=== PATIENT | male | born 1940 | race Caucasian/White ===

== ENCOUNTER 2016-12-02 05:52 | Emergency (ER) | payer MEDICARE, BC ==
[~2016-12-02] VITALS: Ht 177.8 cm; Wt 82.0 kg
[2016-12-02 05:55] VITALS: BP 205/109; PULSE 62; RESP 16; TEMP 98; O2SAT 96
[2016-12-02 06:45] VITALS: BP 174/76; PULSE 66; RESP 16; O2SAT 99
[2016-12-02 07:09] VITALS: BP 172/75; PULSE 71; RESP 18; TEMP 98.3; O2SAT 96
[2016-12-02] MEDS ORDERED: diphenhydrAMINE HCL 50 MG/ML VIAL IVP ONE (07:30)
[2016-12-02] MEDS ORDERED: METOCLOPRAMIDE HCL 10 MG/2 ML VIAL IVP ONE (07:30)
[2016-12-02] MEDS ORDERED: SODIUM CHLORIDE 0.9% FLUSH 5 ML FLUSH IVF PRN (07:30)
[2016-12-02 08:00] LABS: BASOPHIL % 0.6 % (0.0-2.0); EOSINOPHIL # 0.1 TH/MM3 (0-0.4); EOSINOPHIL % 0.8 % (0.0-4.0); HEMO FLAGS DIFF FINAL; LYMPH % 17.6 % (9.0-44.0); LYMPHOCYTE # 1.2 TH/MM3 (1.0-4.8); MEAN CELL VOLUME 85.2 FL (80.0-100.0); MEAN CORPUSCULAR HEMOGLOBIN 28.4 PG (27.0-34.0); MEAN CORPUSCULAR HGB CONC 33.4 % (32.0-36.0); MONO % 6.7 % (0.0-8.0); NEUT % 74.3 % (16.0-70.0); PLATELET COUNT 197 TH/MM3 (150-450); RED CELL DISTRIBUTION WIDTH 14.4 % (11.6-17.2); WHITE BLOOD COUNT 6.7 TH/MM3 (4.0-11.0)
[2016-12-02 08:07] VITALS: BP 185/85; PULSE 66; RESP 18; O2SAT 98
--- NOTE | 2016-12-02 08:13 | RADRPT ---
EXAM DATE/TIME: 12/02/2016 07:43 [facility] COMPARISON: No previous studies available for comparison. INDICATIONS : Cephalgia for one day. RADIATION DOSE: 56.35 CTDIvol (mGy) MEDICAL HISTORY : Diabetes. SURGICAL HISTORY : None. ENCOUNTER: Initial ACUITY: 1 day PAIN SCALE: 5/10 LOCATION: cranial TECHNIQUE: Multiple contiguous axial images were obtained of the head. Using automated exposure control and adj ustment of the mA and/or kV according to patient size, radiation dose was kept as low as reasonably a chievable to obtain optimal diagnostic quality images. FINDINGS: CEREBRUM: The ventricles are normal for age. No evidence of midline shift, mass lesion, hemorrhage or acute in farction. No extra-axial fluid collections are seen. POSTERIOR FOSSA: The cerebellum and brainstem are intact. The 4th ventricle is midline. The cerebellopontine angle i s unremarkable. EXTRACRANIAL: The visualized portion of the orbits is intact. SKULL: The calvaria is intact. No evidence of skull fracture. CONCLUSION: Moderate periventricular white matter changes otherwise negative.. Tre Coombs MD FACR on December 02, 2016 at 8:10 Board Certified Radiologist. This report was verified electronically.
[2016-12-02 08:18] LABS: BICARBONATE 27.8 MEQ/L (21.0-32.0); POTASSIUM 4.3 MEQ/L (3.5-5.1)
--- NOTE | 2016-12-02 08:37 | PD ---
HPI Chief Complaint: Headache Time Seen by Provider: 07:17 Travel History International Travel<30 days: No Contact w/Intl Traveler<30days: No Traveled to known affect area: No History of Present Illness HPI Patient is a 76-year-old male presents emergency department with complaint of headache. Patient states that he woke up this morning with a midline occipital parietal headache. States that this is severe and "hurts like hell". Patient states that the headache woke him up from sleep. He has tried 1000 mg of Tylenol prior to arrival with little to no help in his symptoms. The headache does have some pulsating characteristics. He is overall not a headachy person and does not get headaches frequently, it has been getting them with some irregularity over the last several months. He was given a prescription for butalbital by his PCP, but patient has not yet taken this. He denies any changes in his vision, nausea vomiting. No neurologic symptoms. Denies any history of subarachnoid hemorrhage, and self or family. PFSH Past Medical History Diabetes: Yes Patient Takes Glucophage: Yes Diminished Hearing: No Past Surgical History Abdominal Surgery: Yes (HERNIA REPAIR) Social History Alcohol Use: No Tobacco Use: No Substance Use: No Allergies-Medications (Allergen,Severity, Reaction): Coded Allergies: Codeine (Verified Adverse Reaction, Intermediate, Headache, 12/02/16) Review of Systems Except as stated in HPI: all other systems reviewed are Neg Physical Exam Narrative GENERAL: Well-appearing elderly male in no acute distress SKIN: Warm and dry. HEAD: Atraumatic. Normocephalic. EYES: Pupils equal and round. 3 mm. Extraocular movements intact. No afferent pupillary defect. No scleral icterus. No injection or drainage. ENT: No nasal bleeding or discharge. Mucous membranes pink and moist. TMs clear bilaterally. NECK: Supple, no bruit CARDIOVASCULAR: Regular rate and rhythm. No murmur appreciated. RESPIRATORY: No accessory muscle use. Clear to auscultation. Breath sounds equal bilaterally. GASTROINTESTINAL: Abdomen soft, non-tender, nondistended. MUSCULOSKELETAL: Moves all extremity's normally NEUROLOGICAL: Awake and alert. Answers questions and follows commands appropriately. No obvious cranial nerve deficits. Motor grossly within normal limits, 5 out of 5 strength without ataxia. Normal speech. PSYCHIATRIC: Appropriate mood and affect; insight and judgment normal. Data Data Last Documented VS Vital Signs Date Time Temp Pulse Resp B/P Pulse Ox O2 Delivery O2 Flow Rate FiO2 12/02/16 08:56 89 156/78 12/02/16 08:07 18 98 Room Air 12/02/16 07:[address] Brain W/O Iv Contrast(Rout) (12/02/16 ) Complete Blood Count With Diff (12/02/16 07:21) Basic Metabolic Panel (Bmp) (12/02/16 07:21) Ecg Monitoring (12/02/16 07:21) Iv Access Insert/Monitor (12/02/16 07:21) Oximetry (12/02/16 07:21) Sodium Chloride 0.9% Flush (Ns Flush) (12/02/16 07:30) Diphenhydramine Inj (Benadryl Inj) (12/02/16 07:30) Metoclopramide Inj (Reglan Inj) (12/02/16 07:30) Ketorolac Inj (Toradol Inj) (12/02/16 08:45) Electrocardiogram (12/02/16 07:15) Labs Laboratory Tests Test 12/02/16 07:39 White Blood Count 6.7 TH/MM3 Red Blood Count 4.70 MIL/MM3 Hemoglobin 13.4 GM/DL Hematocrit 40.0 % Mean Corpuscular Volume 85.2 FL Mean Corpuscular Hemoglobin 28.4 PG Mean Corpuscular Hemoglobin 33.4 % Concent Red Cell Distribution Width 14.4 % Platelet Count 197 TH/MM3 Mean Platelet Volume 8.7 FL Neutrophils (%) (Auto) 74.3 % Lymphocytes (%) (Auto) 17.6 % Monocytes (%) (Auto) 6.7 % Eosinophils (%) (Auto) 0.8 % Basophils (%) (Auto) 0.6 % Neutrophils # (Auto) 5.0 TH/MM3 Lymphocytes # (Auto) 1.2 TH/MM3 Monocytes # (Auto) 0.4 TH/MM3 Eosinophils # (Auto) 0.1 TH/MM3 Basophils # (Auto) 0.0 TH/MM3 CBC Comment DIFF FINAL Differential Comment Sodium Level 139 MEQ/L Potassium Level 4.3 MEQ/L Chloride Level 105 MEQ/L Carbon Dioxide Level 27.8 MEQ/L Anion Gap 6 MEQ/L Blood Urea Nitrogen 16 MG/DL Creatinine 0.92 MG/DL Estimat Glomerular Filtration 80 ML/MIN Rate Random Glucose 137 MG/DL Calcium Level 9.4 MG/DL MDM Medical Decision Making Medical Screen Exam Complete: Yes Emergency Medical Condition: Yes Medical Record Reviewed: Yes Differential Diagnosis 76-year-old male here with complaint of sudden onset severe headache at approximately 3 AM. Differential includes tension headache, cluster headache, migraine headache, subarachnoid hemorrhage. There is no report of trauma. Patient is hypertensive, but not to the degree that I would anticipate this causing his headache. Narrative Course Patient placed on monitor, IV established and blood obtained. A twelve-lead EKG shows sinus rhythm with first-degree AV block. Right bundle branch block. No notable ST abnormalities. Patient was given 50 mg Benadryl, 10 mg Reglan with little change in his symptoms. CT brain was obtained and negative. CBC, BMP unremarkable. As patient's CT of the brain was performed within 6 hours of headache onset, patient does not require lumbar puncture. The is supported by BMJ article BMJ 2011;343:d4277. This study including patient's over the age of 15 with a nontraumatic acute headache or with syncope associated with headache. Patient' s were GCS 15, had a headache with maximum intensity in less than one hour after onset. Patient's were focal neurologic deficits, papilledema, history of FH, aneurysm, [employer] shunt or brain neoplasm were excluded. With this, a head CT within the first 6 hours had 100% sensitivity in 100% specificity for subarachnoid hemorrhage. As patient had little change in his symptoms after the above treatment he was given 30 mg Toradol. Patient felt markedly improved after this treatment will be discharged home. Diagnosis Primary Impression: Headache Qualified Code: R51 - Acute nonintractable headache, unspecified headache type Additional Impression: Hypertension Qualified Code: I10 - Essential hypertension Referrals: Primary Care Physician as needed Additional Instructions: Tylenol (acetaminophen) or Motrin (ibuprofen) at home as needed for headache. Follow-up with primary care provider if symptoms persist and return to the ER for the warning signs discussed. Med/Other Pt SpecificInfo: No Change to Meds Disposition: 01 DISCHARGE HOME Condition: Stable Haylee Friend MD Dec 02, 2016 08:37
[2016-12-02] MEDS ORDERED: KETOROLAC TROMETHAMINE 30 MG/ML (IVP) VIAL IVP ONE (08:45)
[2016-12-02 08:56] VITALS: BP 156/78; PULSE 89
[2016-12-02 11:04] VITALS: BP 162/88; TEMP 98.3
--- NOTE | 2016-12-02 11:36 | EKG ---
Date Performed: 12/02/2016 Time Performed: 07:15:39 PTAGE: 76 years EKG: Sinus rhythm WITH FIRST DEGREE AV BLOCK RIGHT BUNDLE BRANCH BLOCK ABNORMAL ECG NO PREVIOUS TRACING DOCTOR: Hugh Thorne Interpretating Date/Time 12/02/2016 11:34:42
== END 2016-12-02 10:50 | disposition home or self-care (01) ==
LOC: NEPE 05:52
DX: R51 Headache (principal); I10 Essential (primary) hypertension; E11.9 Type 2 diabetes mellitus without complications
CPT/HCPCS: 70450; 80048; 85025; 93005; 96374; 96375; 99284; J1200; J1885; J2765

== ENCOUNTER 2016-12-29 20:41 | Inpatient (IN) | payer MEDICARE, BC ==
[~2016-12-29] VITALS: Ht 180.3 cm; Wt 79.5 kg
[2016-12-29 20:44] VITALS: BP 140/65; PULSE 102; RESP 15; TEMP 100.1; O2SAT 94
[2016-12-29] MEDS ORDERED: PIPERACIL-TAZO 4.5 GM PREMIX 100 ML IV STA (21:35)
[2016-12-29] MEDS ORDERED: VANCOMYCIN INJ 1,000 MG in SODIUM CHLOR 0.9% 250 ML INJ 250 ML IV STA (21:35)
[2016-12-29] MEDS ORDERED: SODIUM CHLOR 0.9% 1000 ML INJ 1,000 ML IV ONE ×2 (21:35)
[2016-12-29] MEDS ORDERED: SODIUM CHLOR 0.9% 1000 ML INJ 700 ML IV ONE (21:35)
[2016-12-29 21:37] VITALS: BP 134/62; PULSE 97; RESP 12; TEMP 97.2; O2SAT 95
--- NOTE | 2016-12-29 21:38 | PD ---
HPI Chief Complaint: General Weakness Time Seen by Provider: 21:31 Travel History International Travel<30 days: No Contact w/Intl Traveler<30days: No Traveled to known affect area: No History of Present Illness HPI 76-year-old diabetic male here with complaint of generalized weakness. Patient states that for the last 24 hours he feels generally weak, fatigued. notes tactile fever at home. Patient denies any complaints of cough, cold, chest congestion, abdominal pain or urinary symptoms. He has chronic runny nose but this is not any worse than his baseline. No chest pain, palpitations. PFSH Past Medical History Diabetes: Yes (METFORMIN) Diminished Hearing: No Past Surgical History Abdominal Surgery: Yes (HERNIA REPAIR) Social History Alcohol Use: No Tobacco Use: No Substance Use: No Allergies-Medications (Allergen,Severity, Reaction): Coded Allergies: Codeine (Verified Adverse Reaction, Intermediate, Headache, 12/29/16) Reported Meds & Prescriptions Reported Meds & Active Scripts Active Reported Valsartan 40 Mg Tab 20 Mg PO BID Ivlmwxtsip-Bjjrigfbbohmi-Augfpyfe 50-325-40 Mg Tab 1 Tab PO Q4H PRN Do not exceed 6 tablets/day. Pravastatin 20 Mg Tab 20 Mg PO DAILY Aricept (Donepezil) 10 Mg Tab 10 Mg PO HS Glimepiride 4 Mg Tab 4 Mg PO BIDAC Cilostazol 100 Mg Tab 100 Mg PO BID Repaglinide 0.5 Mg Tab 0.5 Mg PO TIDAC Toprol XL (Metoprolol Succinate) 50 Mg Tab 50 Mg PO DAILY Metformin (Metformin HCl) 500 Mg Tab 1,000 Mg PO BIDPC With meals Review of Systems Except as stated in HPI: all other systems reviewed are Neg Physical Exam Narrative GENERAL: Pleasant elderly male in no acute distress SKIN: Warm and dry. HEAD: Normocephalic. EYES: Pupils equal and round. No scleral icterus. No injection or drainage. ENT: No nasal bleeding or discharge. Mucous membranes pink and moist. NECK: Supple without nuchal rigidity CARDIOVASCULAR: Tachycardic with heart rate in the 100s, irregularly irregular rhythm. No murmur appreciated. RESPIRATORY: No accessory muscle use. Clear to auscultation. Breath sounds equal bilaterally. GASTROINTESTINAL: Abdomen soft, non-tender, nondistended. MUSCULOSKELETAL: Normal gait NEUROLOGICAL: Awake and alert. Motor grossly within normal limits. Normal speech. PSYCHIATRIC: Appropriate mood and affect; insight and judgment normal. Data Data Last Documented VS Vital Signs Date Time Temp Pulse Resp B/P Pulse Ox O2 Delivery O2 Flow Rate FiO2 12/29/16 21:53 100.0 12/29/16 21:52 100 12 93 Room Air 12/29/16 21:37 134/62 Orders Electrocardiogram (12/29/16 20:56) Complete Blood Count With Diff (12/29/16 20:56) Basic Metabolic Panel (Bmp) (12/29/16 20:56) Ckmb (Isoenzyme) Profile (12/29/16 20:56) Troponin I (12/29/16 20:56) Chest, Single Ap (12/29/16 20:56) Lactic Acid Sepsis Protocol (12/29/16 21:06) Lipase (12/29/16 21:06) Urinalysis - C+S If Indicated (12/29/16 21:06) Blood Culture (12/29/16 21:06) Magnesium (Mg) (12/29/16 21:24) Prothrombin Time / Inr (Pt) (12/29/16 21:24) Act Partial Throm Time (Ptt) (12/29/16 21:24) Bilateral Bp Monitoring (12/29/16 21:24) Ecg Monitoring (12/29/16 21:35) Iv Access Insert/Monitor (12/29/16 21:35) Oximetry (12/29/16 21:35) Acetaminophen (Tylenol) (12/29/16 21:45) Vancomycin Inj (Vancomycin Inj) (12/29/16 21:35) Piperacil-Tazo 4.5 Gm Premix (Zosyn 4.5 (12/29/16 21:35) Sodium Chlor 0.9% 1000 Ml Inj (Ns 1000 M (12/29/16 21:35) Sodium Chlor 0.9% 1000 Ml Inj (Ns 1000 M (12/29/16 21:35) Sodium Chlor 0.9% 1000 Ml Inj (Ns 1000 M (12/29/16 21:35) Hepatic Functional Panel (12/29/16 21:45) CKMB (12/29/16 21:09) CKMB% (12/29/16 21:09) Consult Cardiology (12/29/16 ) Enoxaparin Inj (Lovenox Inj) (12/29/16 23:00) Admit Order (Ed Use Only) (12/29/16 23:20) Labs Laboratory Tests Test 12/29/16 12/29/16 12/29/16 21:09 21:45 21:48 White Blood Count 6.1 TH/MM3 Red Blood Count 3.92 MIL/MM3 Hemoglobin 11.3 GM/DL Hematocrit 33.3 % Mean Corpuscular Volume 85.1 FL Mean Corpuscular Hemoglobin 29.0 PG Mean Corpuscular Hemoglobin 34.0 % Concent Red Cell Distribution Width 14.1 % Platelet Count 161 TH/MM3 Mean Platelet Volume 8.3 FL Neutrophils (%) (Auto) 85.0 % Lymphocytes (%) (Auto) 6.1 % Monocytes (%) (Auto) 8.5 % Eosinophils (%) (Auto) 0.0 % Basophils (%) (Auto) 0.4 % Neutrophils # (Auto) 5.2 TH/MM3 Lymphocytes # (Auto) 0.4 TH/MM3 Monocytes # (Auto) 0.5 TH/MM3 Eosinophils # (Auto) 0.0 TH/MM3 Basophils # (Auto) 0.0 TH/MM3 CBC Comment DIFF FINAL Differential Comment Sodium Level 141 MEQ/L Potassium Level 3.5 MEQ/L Chloride Level 107 MEQ/L Carbon Dioxide Level 26.6 MEQ/L Anion Gap 7 MEQ/L Blood Urea Nitrogen 25 MG/DL Creatinine 1.16 MG/DL Estimat Glomerular Filtration 61 ML/MIN Rate Random Glucose 102 MG/DL Calcium Level 8.9 MG/DL Total Creatine Kinase 110 U/L Creatine Kinase MB LESS THAN 0.5 NG/ML Troponin I 0.08 NG/ML Prothrombin Time 11.1 SEC Prothromb Time International 1.0 RATIO Ratio Activated Partial 28.7 SEC Thromboplast Time Magnesium Level 2.2 MG/DL Total Bilirubin 0.5 MG/DL Direct Bilirubin 0.1 MG/DL Indirect Bilirubin 0.4 MG/DL Aspartate Amino Transf 37 U/L (AST/SGOT) Alanine Aminotransferase 49 U/L (ALT/SGPT) Alkaline Phosphatase 82 U/L Total Protein 8.3 GM/DL Albumin 4.2 GM/DL Lipase 314 U/L Lactic Acid Level 1.0 mmol/L MDM Medical Decision Making Medical Screen Exam Complete: Yes Emergency Medical Condition: Yes Medical Record Reviewed: Yes Differential Diagnosis 76-year-old diabetic male here with generalized weakness 24 hours. Patient notably tachycardic with heart rates in the 100s, low-grade temp 100.1. Differential includes viral syndrome, influenza, pneumonia, you TIA, bacteremia , arrhythmia, electrolyte abnormality, symptomatic anemia. Less likely abdominal source given benign abdominal examination. Narrative Course Patient placed on monitor, IV established and blood obtained. A 12-lead EKG shows atrial fibrillation with RVR, heart rate 109. Right bundle branch block. Patient has ST elevation in aVR, lead 3 but these are not contiguous. He has diffuse ST depression in the lateral leads 1, aVL and V1 through V6. This is more pronounced from his baseline EKG. Again he does not have any active chest pain at this time. Patient was given Tylenol and empirically covered with vancomycin, Zosyn, IV fluids. CBC, CMP, lipase, CK-MB, troponin, lactate, urinalysis, coags, magnesium notable for troponin 0.08. Again patient denies any cardiac history, chest pain, shortness of breath. I spoke with Dr. Young, my suspicion that this is more demand ischemia and less likely non- ST elevation ME. Therefore patient was given dose of Lovenox which she agreed with. Portable chest x-ray obtained that by my read shows no evidence of infiltrate. Urinalysis remains pending. Patient will be admitted for further management. Critical Care Narrative Aggregate critical care time was 35 minutes. Time to perform other separately billable procedures was not included in the critical care time. My time did not include minutes spent treating any other patients simultaneously or on activities that did not directly contribute to the patient's treatment. The services I provided to this patient were to treat and/or prevent clinically significant deterioration that could result in: Cardiopulmonary decompensation, , disability I provided critical care services requiring my management, as noted below: Chart data review, documentation time, medication orders and management, vital sign assessments/reviewing monitor data, ordering and reviewing lab tests, ordering and interpreting/reviewing x-rays and diagnostic studies, care of the patient and discussion of the patient with the admitting physicians. Sepsis Criteria SIRS Criteria (2 or more): Heart rate over 90 Sepsis Criteria (SIRS+source): Infect source susp/known Diagnosis Primary Impression: Sepsis Qualified Code: A41.9 - Sepsis, due to unspecified organism Additional Impressions: Elevated troponin Generalized weakness Admitting Information Admitting Physician Requests: Admit Haylee Friend MD Dec 29, 2016 21:38
[2016-12-29] MEDS ORDERED: ACETAMINOPHEN 325 MG TAB PO ONE (21:45)
--- NOTE | 2016-12-29 21:45 | RADRPT ---
EXAM DATE/TIME: 12/29/2016 21:31 [facility] COMPARISON: No previous studies available for comparison. INDICATIONS : Weakness, cough for 3 days MEDICAL HISTORY : None. SURGICAL HISTORY : None. ENCOUNTER: Initial ACUITY: 3 days PAIN SCORE: 0/10 LOCATION: Bilateral chest FINDINGS: The lungs are clear without infiltrate, nodule, or mass. There is no appreciable pleural effusion fo r technique. Heart and mediastinum are unremarkable. CONCLUSION: No acute cardiopulmonary disease. Veronique Peter MD on December 29, 2016 at 21:43 Board Certified Radiologist. This report was verified electronically.
[2016-12-29 21:53] VITALS: TEMP 100
[2016-12-29] MEDS ORDERED: PRAV20TA2 PO (22:05)
[2016-12-29] MEDS ORDERED: CILO100T PO (22:05)
[2016-12-29] MEDS ORDERED: ARIC10TA PO (22:05)
[2016-12-29] MEDS ORDERED: TOPR50TA PO (22:05)
[2016-12-29] MEDS ORDERED: METF500T PO (22:05)
[2016-12-29] MEDS ORDERED: GLIM4TAB PO (22:05)
[2016-12-29] MEDS ORDERED: BUTATAB6 PO (22:05)
[2016-12-29] MEDS ORDERED: VALS1TAB63 PO (22:05)
[2016-12-29] MEDS ORDERED: REPA1TAB PO (22:05)
[2016-12-29 22:13] LABS: AUTOMATED NEUTROPHIL # 5.2 TH/MM3 (1.8-7.7); BASOPHIL % 0.4 % (0.0-2.0); HEMATOCRIT 33.3 % (39.0-51.0); HEMO FLAGS DIFF FINAL; LYMPH % 6.1 % (9.0-44.0); LYMPHOCYTE # 0.4 TH/MM3 (1.0-4.8); MEAN CELL VOLUME 85.1 FL (80.0-100.0); MONO % 8.5 % (0.0-8.0); PLATELET COUNT 161 TH/MM3 (150-450); RED BLOOD COUNT 3.92 MIL/MM3 (4.50-5.90); RED CELL DISTRIBUTION WIDTH 14.1 % (11.6-17.2); WHITE BLOOD COUNT 6.1 TH/MM3 (4.0-11.0)
[2016-12-29 22:25] LABS: ANION GAP 7 MEQ/L (5-15); BICARBONATE 26.6 MEQ/L (21.0-32.0); BLOOD UREA NITROGEN 25 MG/DL (7-18); CHLORIDE 107 MEQ/L (98-107); GLOMERULAR FILTRATION RATE 61 ML/MIN (>89); POTASSIUM 3.5 MEQ/L (3.5-5.1); SODIUM (NA) 141 MEQ/L (136-145)
[2016-12-29 22:29] LABS: CREATINE KINASE 110 U/L (39-308)
[2016-12-29 22:36] LABS: APTT (PATIENT) 28.7 SEC (24.3-30.1); PROTHROMBIN TIME - PATIENT 11.1 SEC (9.8-11.6)
[2016-12-29 22:39] LABS: INDIRECT BILIRUBIN 0.4 MG/DL (0.0-0.8); MAGNESIUM 2.2 MG/DL (1.5-2.5); TOTAL BILIRUBIN ADULT 0.5 MG/DL (0.2-1.0)
[2016-12-29 22:42] LABS: CKMB LESS THAN 0.5 NG/ML (0.5-3.6)
[2016-12-29] MEDS ORDERED: ENOXAPARIN SODIUM 80 MG/0.8 ML SYRINGE SQ ONE (23:00)
[2016-12-29] MEDS ORDERED: ONDANSETRON HCL 4 MG/2 ML VIAL IVP PRN (23:45)
[2016-12-29] MEDS ORDERED: SODIUM CHLORIDE 0.9% FLUSH 5 ML FLUSH FLUSH PRN (23:45)
[2016-12-29] MEDS ORDERED: NALOXONE HCL 0.4 MG/ML AMP IV PRN (23:45)
[2016-12-30] VITALS (11 sets, daily range): BP systolic 138–192; BP diastolic 68–137; PULSE 87–116; RESP 16–22; TEMP 96.8–100; O2SAT 89–96
[2016-12-30] MEDS ORDERED: PILL SPLITTER OTHER PRN (00:15)
[2016-12-30 00:45] LABS: BLOOD, URINE NEG (NEG); GLUCOSE,URINE NEG (NEG); KETONE, URINE TRACE mg/dL (NEG); MUCUS URINE FEW /lpf (OCC); NITRITE,URINE NEG (NEG); URINE COLOR YELLOW (YELLW/STRAW)
[2016-12-30 00:48] LABS: COMMENT (UR) CATH-CULT NOT IND; CULTURE IF INDICATED CATH CULTURE NOT IND
[2016-12-30] MEDS: SODIUM CHLOR 0.9% 1000 ML INJ 1,000 ML IV SCH ×2 (00:50→15:05)
[2016-12-30] MEDS ORDERED: METOPROLOL SUCCINATE 50 MG EXTENDED RELEASE TAB PO SCH ×3 (04:30→21:00)
[2016-12-30] MEDS: ACETAMINOPHEN 325 MG TAB PO PRN (04:50)
[2016-12-30] MEDS: PIPERACIL-TAZO 3.375 GM PREMIX 50 ML IV SCH ×3 (05:59→21:55)
[2016-12-30] MEDS ORDERED: FUROSEMIDE 20 MG/2 ML VIAL IV PUSH ONE (06:00)
[2016-12-30 06:10] LABS: AUTOMATED NEUTROPHIL # 5.2 TH/MM3 (1.8-7.7); BASOPHIL % 0.5 % (0.0-2.0); HEMATOCRIT 33.4 % (39.0-51.0); HEMO FLAGS DIFF FINAL; LYMPH % 6.9 % (9.0-44.0); LYMPHOCYTE # 0.4 TH/MM3 (1.0-4.8); MEAN CELL VOLUME 85.4 FL (80.0-100.0); MEAN CORPUSCULAR HEMOGLOBIN 28.7 PG (27.0-34.0); MEAN CORPUSCULAR HGB CONC 33.6 % (32.0-36.0); MONO % 6.2 % (0.0-8.0); NEUT % 86.4 % (16.0-70.0); PLATELET COUNT 145 TH/MM3 (150-450); RED BLOOD COUNT 3.91 MIL/MM3 (4.50-5.90); RED CELL DISTRIBUTION WIDTH 14.4 % (11.6-17.2)
[2016-12-30] MEDS ORDERED: DEXTROSE 50% IN WATER 50 ML VIAL(D50) IV PUSH PRN (06:15)
[2016-12-30] MEDS ORDERED: GLUCAGON 1 MG/ML VIAL OTHER PRN (06:15)
[2016-12-30 06:59] LABS: HDL CHOLESTEROL 46.5 MG/DL (40.0-60.0)
[2016-12-30] MEDS: INSULIN ASPART SUPPLEMENTAL SCALE SQ SCH ×4 (07:00→21:00)
[2016-12-30 07:03] LABS: BICARBONATE 22.2 MEQ/L (21.0-32.0); POTASSIUM 3.5 MEQ/L (3.5-5.1)
--- NOTE | 2016-12-30 08:51 | MH ---
cc: SAUMYA DAVIES MD DATE OF : 1940 DATE OF ADMISSION: 12/29/2016 CHIEF COMPLAINT Generalized weakness. No travel in the last thirty days. HISTORY OF PRESENT ILLNESS: This is a pleasant 76 year old white male with a general complaint of weakness yesterday. The patient has felt weak and fatigued over the last 24 hours according to his , she also states that the patient had some fever at home. This information is according to the medical records. The patient is a fair to poor historian. Currently the patient denies any cough, colds, congestion, chest pain, shortness of breath, abdominal pain, no problems voiding, no problems with his bowels. I did note a thick, becerra sputum in a cup by his bed but he denies any cough. He does according to the record have a chronic runny nose and possible allergies but currently denies any other symptoms except "I have been very weak". The patient has also had incontinent bowel movement in the bed this a.m. and is trying to get up without calling for any assistance. PAST MEDICAL HISTORY: 1. Diabetes type 2. 2. Hypertension. PAST SURGICAL HISTORY: Abdominal hernia repair ALLERGIES CODEINE MEDICATIONS: Reported; 1. Valsartan 2. Butalbital/acetaminophen/caffeine as needed 3. Pravastatin 4. Aricept 5. Glimepiride 6. Clotrimazole 7. Repaglinide 8. Toprol XL 9. Metformin 10. Hydrochloric acid. SOCIAL HISTORY: The patient is , currently lives at home with his . Denies any tobacco, alcohol or illicit drug use. FAMILY HISTORY: Initially he stated a unknown then he stated his mother was a diabetic and had her leg amputated. REVIEW OF SYSTEMS 12 point review of systems was done, some of this was limited information due to his forgetfulness. Positives noted are; A thick, creamy, becerra sputum, incontinence of bowel movement. Decreased breath sounds, in his spaces with some mild wheezing. PHYSICAL EXAMINATION: VITAL SIGNS: Temperature 100, decreased to 99.1 now. Pulse is labile between 93 and 116, respiratory rate 22, blood pressure 140/74. On entrance to the emergency room it was 192/116 and 174/74. O2 saturations 90 to 95. O2 per nasal cannula between three and five liters. GENERAL ASSESSMENT: Pleasant 76 year old white male, looks to be his stated age, mild respiratory distress. SKIN: The skin is pale, warm and dry. HEAD, EYES, EARS, NOSE, AND THROAT: Atraumatic, normocephalic, Pupils equal, round and reactive to light 3, no scleral icterus. No drainage from his eyes. Nasal cavity or oral cavity. Mucous membranes are pink and moist. NECK: The neck is supple. CARDIOVASCULAR SYSTEM: Heart sounds borderline tachycardia. Some irregularity. Distant heart sounds, no murmurs, rubs or gallops appreciated. He has no edema. Pulses are intact. RESPIRATORY: He is essentially clear in his upper doyle, anteriorly and posteriorly but in his right lower base he does have decreased breath sounds with some crackles. His left base has some decreased breath sounds and mild wheezing. GASTROINTESTINAL: Abdomen is flat, soft, nontender, nondistended. Active bowel sounds in all four quadrants. MUSCULOSKELETAL: He moves his extremities with purpose. His test tube maker are equal. He can overcome resistance. NEUROLOGICALLY: He is alert, questionable, and pleasant, confusion over history, speech is normal and clear. PSYCHIATRIC: Affect is appropriate. Questionable insight and judgment. DIAGNOSTIC DATA: Sodium 143, potassium 3.5, chloride 111, co2 22.2. Anion gap 10, blood urea nitrogen 17, creatinine 1.00, glomerular filtration rate 72, random glucose 67, accuchecks 66, lactic acid 1, calcium 7.7, troponin is elevated at 0.10 and 0.14, triglycerides 56, cholesterol 95, LDL 37, HDL 46.5. Thyroid stimulating hormone 0.835. Urine is yellow, clear, pH is 5, specific gravity is 1.026, trace of protein, negative glucose, trace of ketones. Negative nitrates, bilirubin and acute blood. Staph culture is not indicated at this time. Complete blood count, white blood count 6, red blood cells 3.91, hemoglobin 11.2, hematocrit 33.4. Platelet count 145. Neutrophil percentage auto 86.4. Lymphs 6.9, imaging study showed chest x-ray to be no acute cardiopulmonary disease. ASSESSMENT: 1. Lactic acid sepsis, unknown organism, renal ultrasound. 2. Myocardial infarction/coronary artery disease with elevated troponins. 3. Hypertension, uncontrolled. 4. Diabetes mellitus type 2, uncontrolled with some hypoglycemia. 5. Anemia. PLAN: Our plan is to admit to inpatient status. Deep venous thrombosis prophylaxis with Lovenox. We will reconcile his medications. He will have accuchecks AC/HS with hyper and hypoglycemia protocol as well as sliding scale, vital signs will be at least q four hours. Patients lactic acid level was 1, we will start him on Vancomycin and Piperacillin with some further testing. The patient will remain on Telemetry and a open IV access. We will consult cardiology for their expert opinion. We will continue to monitor the patients third troponin level and electrocardiograms. His deep venous thrombosis prophylaxis will be with Lovenox. The patients electrocardiogram did show atrial fibrillation initially with some rapid ventricular response and a bundle-branch block. He does have diffuse ST depression in leads I aVL, V1 through V6. The patient does not have any active chest pain but we need cardiology's expert opinion for any further testing needed. We will monitor his labs, generalized assessments and any other further tests as needed. Dictated by ERIC Quiroz MD YASH Sauceda/yaquelin /8:11 AM /8:39 AM
--- NOTE | 2016-12-30 09:51 | MB ---
cc: ALVERTO AGUILA MD DATE OF CONSULTATION: 12/30/2016 REASON FOR CONSULTATION Chest pain and indeterminate troponin. HISTORY OF PRESENT ILLNESS Mr. Donovan is a pleasant 76-year-old man you presented to the hospital with generalized weakness and fever. He has had fatigue and weakness for the last 48 hours. The records show he previously denied any cough or cold. Today, however, he is coughing and says he has done so for a couple days. He is a very poor historian. PAST MEDICAL HISTORY 1. Hypertension. 2. Diabetes. 3. Dementia. PAST SURGICAL HISTORY Hernia repair. ALLERGIES CODEINE. MEDICATIONS Outpatient medications include: 1. Valsartan. 2. Pravastatin. 3. Aricept. 4. Glimepiride. 5. Clotrimazole. 6. Toprol. 7. Metformin. SOCIAL HISTORY The patient is and lives with his . He does not drink or smoke. FAMILY HISTORY Unable/noncontributory. REVIEW OF SYSTEMS Except as mentioned in the HPI all 12 systems are negative. PHYSICAL EXAMINATION VITAL SIGNS: 100.1, 110, 22, 191/137. GENERAL: In general he is a weak elderly man who is not even able to sit up in the bed by himself. He is in no apparent distress. NECK: His neck is free from JVD. LUNGS: The lungs have bilateral scattered rhonchi. CARDIOVASCULAR: He does have an irregular rhythm. No rubs or gallops appreciated. ABDOMEN: The abdomen is soft. EXTREMITIES: The extremities are free from edema. LABORATORY Lab values show a hemoglobin of 11.2, creatinine 1.0, serial troponins 0.01/0.14. EKG Initial EKG does show atrial fibrillation with rapid ventricular rate of 110 beats per minute. There is a right bundle branch block. IMPRESSIONS/RECOMMENDATIONS 1. Indeterminate troponin: This likely represents a secondary ND from his hypertension and tachycardia. He will be managed conservatively for this. 2. Sinus tach with frequent PAC's: Concerning for AF but after review is more consistent with sinus and PAC's. I am going to titrate up his Toprol for rate control. 3. Sepsis: This is the most likely etiology for the patient's weakness. This will be managed by the primary team. 4. HTN- uncontrolled- increase toprol as above. Kike Parikh/KIM /9:25 AM /9:40 AM MTDJarvis
[2016-12-30] MEDS: DONEPEZIL HCL 5 MG TAB PO SCH ×2 (10:44→21:54)
[2016-12-30] MEDS: PRAVASTATIN SOD 20 MG TAB PO SCH (10:45)
[2016-12-30] MEDS: ENOXAPARIN SODIUM 40 MG/0.4 ML SYRINGE SQ SCH ×2 (10:45→21:54)
[2016-12-30] MEDS: SODIUM CHLORIDE 0.9% FLUSH 5 ML FLUSH FLUSH SCH ×2 (10:46→21:55)
[2016-12-30] MEDS: CILOSTAZOL 100 MG TAB PO SCH ×2 (12:42→21:52)
[2016-12-30] MEDS: VALSARTAN 40 MG TAB PO SCH ×2 (12:42→21:52)
[2016-12-30] MEDS: VANCOMYCIN INJ 1,000 MG in SODIUM CHLOR 0.9% 250 ML INJ 250 ML IV SCH (12:43)
[2016-12-31] VITALS (7 sets, daily range): BP systolic 136–190; BP diastolic 65–93; PULSE 79–108; RESP 18–20; TEMP 97.4–98.7; O2SAT 93–97
[2016-12-31] MEDS: VANCOMYCIN INJ 1,000 MG in SODIUM CHLOR 0.9% 250 ML INJ 250 ML IV SCH (02:06)
[2016-12-31] MEDS: PIPERACIL-TAZO 3.375 GM PREMIX 50 ML IV SCH ×3 (05:55→13:43)
[2016-12-31] MEDS: INSULIN ASPART SUPPLEMENTAL SCALE SQ SCH ×4 (05:55→20:42)
--- NOTE | 2016-12-31 07:50 | HHI.PR ---
Subjective Subjective Remarks denies any chest pain Shortness of breath at rest Weakness generalized Active diurese this a.m. after IV Lasix No headache at bedside (Lisa Chisholm) Review of Systems Constitutional Constitutional: Fever (99.1), Weakness Constitutional Remarks 10 point ROS done. Positive show nausea no emesis, cough, generalized weakness , poor historian but can answer simple questions, irregular heart rhythm with tachycardia at times ,other systems negative (Lisa Chisholm) Pulmonary Respiratory: Coughing (Lisa Chisholm) Cardiology CV Remarks A fib with tachycardia with any increased activity (Lisa Chisholm) GI/Abdomen GI/Abdominal Exam: Nausea (Lisa Chisholm) Neurologic Neurologic Remarks Poor historian (Lisa Chisholm) Vitals/Results Intake & Output 12/30/16 12/30/16 12/31/16 15:00 23:00 07:00 Intake Total 120 ml Balance 120 ml Intake Oral 120 ml # Voids 3 # Bowel Movements 1 Vital Signs Vital Signs Date Time Temp Pulse Resp B/P Pulse Ox O2 Delivery O2 Flow Rate FiO2 12/31/16 03:55 97.4 80 20 161/76 95 12/31/16 00:16 97.4 88 20 173/80 93 12/30/16 20:00 92 12/30/16 19:27 97.6 87 20 156/72 95 12/30/16 16:26 98.9 90 16 172/82 93 12/30/16 12:23 99.1 90 18 138/68 95 12/30/16 09:12 96.8 96 18 168/77 90 12/30/16 08:05 91 18 154/71 96 Nasal Cannula 3 (Lisa Chisholm) CBC/BMP: 12/30/16 0540 12/30/16 0540 Imaging Remarks Last Impressions Chest X-Ray 12/29/162055 Signed Impressions: Service Date/Time: Thursday, December 29, 2016 21:31 - CONCLUSION: No acute cardiopulmonary disease. KJessica Peter MD Current Medications Active Medications Cilostazol (Pletal) 100 mg BID PO Last administered on 12/30/16t 21:52; Admin Dose 100 MG; Start 12/30/16 at 09:00 Donepezil HCl (Aricept) 10 mg HS PO Last administered on 12/30/16 21:54; Admin Dose 10 MG; Start 12/30/16 at 09:00 Enoxaparin Sodium (Lovenox Inj) 40 mg Q12H SQ Last administered on 12/30/16 21: 54; Admin Dose 40 MG; Start 12/30/16 at 09:00 IV Flush 2 ml 2 ml BID FLUSH Last administered on 12/30/16 21:55; Admin Dose 2 ML; Start 12/30/16 at 09:00 Metoprolol Succinate (Toprol Xl) 50 mg DAILY PO; Start 12/30/16 at 09:00; Stop at 09:00; Status DC Metoprolol Succinate (Toprol Xl) 50 mg HS PO; Start 12/30/16 at 21:00; Stop at 21:00; Status DC Metoprolol Succinate (Toprol Xl) 100 mg HS PO; Start 12/31/16 at 09:00 Pravastatin Sodium (Pravachol) 20 mg DAILY PO Last administered on 12/30/16 10: 45; Admin Dose 20 MG; Start 12/30/16 at 09:00 Valsartan (Diovan) 20 mg BID PO Last administered on 12/30/16 21:52; Admin Dose 20 MG; Start 12/30/16 at 09:00 Vancomycin HCl/ Sodium Chloride (Vancomycin Inj/ NS 250 ml Inj) 250 ml @ 250 mls/hr Q12H IV Last administered on 12/31/16 02:06; Admin Dose 250 MLS/HR; Start 12/30/16 at 12:00 (Lisa Chisholm) Physical Exam General General Appearance: Well Developed, Well Nourished, Comfortable, Obese (Lisa Chisholm) Eyes Eye Exam: Pupils Equal, Pupils Reactive, Sclera White (Lisa Chisholm) Ears & Nose Ears & Nose Exam: Nasal Mucosa [place] (Lisa Chisholm) Throat Throat Exam: Oral Mucosa [place] & Moist (Lisa Chisholm) Neck Neck Exam: Neck Supple, Trachea Midline ([place],Lisa M. DESIGN ARCHITECT) Pulmonary Resp Exam: Breath Sounds Equal, No Distress (at rest), Decreased Bases Resp Remarks Cough nonproductive ([place] M. DESIGN ARCHITECT) Cardiology CV Exam: Irregular, Arrhythmia, Tachycardia CV Remarks A. fib, 80s to 90s at rest, 110-120 with any activity ([place] M. DESIGN ARCHITECT) Gastrointestinal/Abdomen GI Exam: Soft, Non-Tender, Bowel Sounds Present ([place] M. DESIGN ARCHITECT) Genitourinary Exam: Clear Urine ([place] M. DESIGN ARCHITECT) Musculoskeletal MS Exam: Joints Intact, Good Strength (KathrineLisa M. DESIGN ARCHITECT) Integumentary Skin Exam: Warm, Dry Skin Remarks Skin warm to touch (KathrineLisa M. DESIGN ARCHITECT) Neurologic Neuro Exam: Awake (to verbal stimuli), Moving All Extremities (KathrineLisa M. DESIGN ARCHITECT) VTE Prophylaxis VTE Remarks Pradexa discussed, currently Lovenox ([place] M. DESIGN ARCHITECT) Assessment/Plan Assessment/Plan ASSESSMENT: 1. Lactic acid sepsis, unknown organism, renal ultrasound. 2. Myocardial infarction/coronary artery disease with elevated troponins. 3. Hypertension, uncontrolled. 4. Diabetes mellitus type 2, uncontrolled with some hypoglycemia. 5. Anemia. 6. Dysrhythmia, new onset A. fib, RVR up to 120s, lows in the 80s Deep venous thrombosis prophylaxis , Lovenox reconcile his medications. Anemia stable He will have accuchecks AC/HS with hyper and hypoglycemia protocol as well as sliding scale, 67 this am, controlled. vital signs will be at least q four hours. IV antibiotics, R/O infectious event. The patient will remain on Telemetry and a open IV access. Telemetry this a.m. shows A. fib 110-120 RVR with any activity. states this rhythm is new onset. We will consult cardiology for their expert opinion. Patient is now on Lovenox and Toprol .Continue to monitor . Other testing is pending. Low-grade fever 99.1, Active diuresis in a.m. hours from IV Lasix ([place] M. DESIGN ARCHITECT) Assessment/Plan seen, examined by myself, Dr kristian Piper 12/31/16 Stress test was done and was negative No strong evidence of infectious etiology for presentation The patient's main complaint is general weakness Also there is evidence of hypoglycemia Hypokalemia Hold long-acting diabetes medications Hold antibiotics at this time, monitor off antibiotics Follow blood sugars Check 6 AM cortisol level Replace potassium also has crackles on chest exam Repeat chest x-ray Complaining of diarrhea, send stool studies Physical therapy evaluation Possible need for rehabilitation Discussed with patient and his Discussed with nurse Discussed with mid level provider The exam, history, and the medical decision-making described in the above note were completed with the assistance of the mid-level provider. I reviewed the findings presented. I attest that I had a [id number] encounter with the patient on the same day, and personally performed and documented my assessment and findings in the medical record. (Chanel Piper MD) Lisa Chisholm Dec 31, 2016 07:50 Chanel Piper MD Dec 31, 2016 17:46 The patient will remain on Telemetry and a open IV access. Telemetry this a.m. shows A. fib 110-120 RVR with any activity. states this rhythm is new onset. We will consult cardiology for their expert opinion. Patient is now on Lovenox and Toprol .Continue to monitor . Other testing is pending. Low-grade fever 99.1, Active diuresis in a.m. hours from IV Lasix Lisa Chisholm Dec 31, 2016 07:50
[2016-12-31] MEDS: CILOSTAZOL 100 MG TAB PO SCH ×2 (08:47→22:46)
--- NOTE | 2016-12-31 08:47 | PD.CARD.PN ---
Subjective Subjective Remarks Pt without complaints Objective Medications Current Medications Medications (Trade) Dose Ordered Sig/Darion Route Start Time Stop Time Status Last Admin (NS 1000 ml Inj) 1,000 ml @ 50 mls/hr Q20H IV 12/29/16 23:42 12/30/16 15:05 (NS Flush) 2 ml UNSCH PRN FLUSH 12/29/16 23:45 (NS Flush) 2 ml BID FLUSH 12/30/16 09:00 12/30/16 21:55 (Tylenol) 650 mg Q4H PRN PO 12/29/16 23:45 12/30/16 04:50 (Zofran Inj) 4 mg Q6H PRN IVP 12/29/16 23:45 Naloxone HCl 0.4 mg 0.4 mg UNSCH PRN IV 12/29/16 23:45 Piperacillin Sod/ Tazobactam Sod 50 ml @ 100 mls/hr Q8H IV 12/30/16 06:00 12/31/16 05:55 (Vancomycin Inj/ NS 250 ml Inj) 250 ml @ 250 mls/hr Q12H IV 12/30/16 12:00 12/31/16 02:06 (Lovenox Inj) 40 mg Q12H SQ 12/30/16 09:00 12/30/16 21:54 (Pletal) 100 mg BID PO 12/30/16 09:00 12/30/16 21:52 (Aricept) 10 mg HS PO 12/30/16 09:00 12/30/16 21:54 (Pravachol) 20 mg DAILY PO 12/30/16 09:00 12/30/16 10:45 (Diovan) 20 mg BID PO 12/30/16 09:00 12/30/16 21:52 (Pill Splitter) 1 ea UNSCH PRN OTHER 12/30/16 00:15 (D50w (Vial) Inj) 25 ml UNSCH PRN IV PUSH 12/30/16 06:15 (Glucagon Inj) 1 mg UNSCH PRN OTHER 12/30/16 06:15 (Toprol Xl) 100 mg DAILY PO 12/31/16 09:00 UNV Vital Signs / I&O Vital Signs Date Time Temp Pulse Resp B/P Pulse Ox O2 Delivery O2 Flow Rate FiO2 12/31/16 07:54 98.7 98 19 147/93 94 2/5/17 03:55 97.4 80 20 161/76 95 12/31/16 00:16 97.4 88 20 173/80 93 12/30/16 20:00 92 12/30/16 19:27 97.6 87 20 156/72 95 12/30/16 16:26 98.9 90 16 172/82 93 12/30/16 12:23 99.1 90 18 138/68 95 12/30/16 09:12 96.8 96 18 168/77 90 I/O 12/30/16 12/30/16 12/30/16 12/31/16 12/31/16 12/31/16 07:00 15:00 23:00 07:00 15:00 23:00 Intake Total 120 ml Output Total 800 ml Balance -800 ml 120 ml Intake Oral 120 ml Output Urine Total 800 ml # Voids 2 3 # Bowel Movements 1 Physical Exam GENERAL: Well developed, well nourished. No acute distress. HEENT: Jugular venous pressure is normal. CHEST: Lungs clear to auscultation bilaterally. Unlabored respiratory effort. CARDIAC: Regular rate and rhythm without S3, S4, or murmur. ABDOMEN: Soft, nontender, no hepatosplenomegaly. Bowel sounds present. EXTREMITIES: No clubbing, cyanosis, or edema. Imaging Last 72 hours Impressions Chest X-Ray 12/29/162055 Signed Impressions: Service Date/Time: Thursday, December 29, 2016 21:31 - CONCLUSION: No acute cardiopulmonary disease. KJessica Peter MD Assessment and Plan Assessment and Plan Indeterminant Trop- likely secondary to uncontrolled HTN - nuc today HTN- - better today re-eval after am meds RBBB- stable Sepsis- etiology not clear on IV antibiotics per primary team, still tachy Dispo- reasonable for d/c from CV perspective if nuc is not ischemic Tasha Young MD Dec 31, 2016 08:47
[2016-12-31] MEDS: SODIUM CHLORIDE 0.9% FLUSH 5 ML FLUSH FLUSH SCH ×2 (08:50→21:00)
[2016-12-31] MEDS: ENOXAPARIN SODIUM 40 MG/0.4 ML SYRINGE SQ SCH ×2 (08:50→22:46)
[2016-12-31] MEDS: PRAVASTATIN SOD 20 MG TAB PO SCH (08:51)
[2016-12-31] MEDS: VALSARTAN 40 MG TAB PO SCH ×2 (08:53→22:46)
[2016-12-31] MEDS ORDERED: METOPROLOL SUCCINATE 50 MG EXTENDED RELEASE TAB PO SCH (09:00)
[2016-12-31] MEDS: METOPROLOL SUCCINATE 50 MG EXTENDED RELEASE TAB PO SCH (09:00)
[2016-12-31] MEDS: ASPIRIN 325 MG TAB PO SCH (09:15)
[2016-12-31] MEDS ORDERED: REGADENOSON INJ 0.4 MG/5 ML SYR ONE (11:06)
--- NOTE | 2016-12-31 12:33 | EKG ---
Date Performed: 12/29/2016 Time Performed: 21:05:42 PTAGE: 76 years EKG: ATRIAL FIBRILLATION WITH RAPID VENTRICULAR RESPONSE RIGHT BUNDLE BRANCH BLOCK When compared to previous tracing, there is now evidence of Atrial fibrillation verses sinus tachicardia with markel ature atrial Contractions. ABNORMAL ECG PREVIOUS TRACING : 12/02/2016 07.15 DOCTOR: Jim Jacques Interpretating Date/Time 12/31/2016 12:32:36
--- NOTE | 2016-12-31 12:41 | EKG ---
Date Performed: 12/30/2016 Time Performed: 03:54:50 PTAGE: 76 years EKG: SINUS TACHYCARDIA WITH OCCASSIONAL SUPRAVENTRICULAR PREMATURE COMPLEXES INDETERMINATE AXIS RIGHT BUNDLE BRANCH BLOCK When copmpared to previous tracing, atrial fibrillation can not be Excluded . ABNORMAL ECG PREVIOUS TRACING : 12/29/2016 21.05.42 DOCTOR: Jim Jacques Interpretating Date/Time 12/31/2016 12:45:36
--- NOTE | 2016-12-31 12:42 | EKG ---
Date Performed: 12/30/2016 Time Performed: 09:27:19 PTAGE: 76 years EKG: Sinus rhythm WITH OCCASIONAL SUPRAVENTRICULAR PREMATURE COMPLEXES RIGHT BUNDLE BRANCH BLOCK Wwhen compared to pre vious tracing, the patient appears to be In sinus rhythm with occasional premature atrial contraction s and A right bundle branch block ABNORMAL ECG PREVIOUS TRACING : 12/30 2016 03.54.47 DOCTOR: Jim Jacques Interpretating Date/Time 12/31/2016 12:42:44
--- NOTE | 2016-12-31 13:17 | RADRPT ---
EXAM DATE/TIME: 12/31/2016 11:07 [facility] COMPARISON: No previous studies available for comparison. INDICATIONS : Susbternal chest pain with elevated troponin and generalized weakness. Angina. DOSE: 25.4 mCi Tc99m Myoview at stress. 8.5 mCi Tc99m Myoview at rest. 0.4 mg Lexiscan STRESS SYMPTOMS: Asymptomatic. EJECTION FRACTION: 66% MEDICAL HISTORY : Hypertension. Diabetes mellitus type 2. SURGICAL HISTORY : Hernia repair. ENCOUNTER: Initial ACUITY: 1 day PAIN SCALE: 4/10 LOCATION: Substernal chest TECHNIQUE: The patient underwent pharmacologic stress with infusion of prescribed dose. Continuous ECG tracing was monitored during stress. Gated SPECT imaging was performed after stress and conventional SPECT i maging was performed at rest. The examination was performed on a SPECT/CT scanner, both attenuation and non-corrected datasets were reviewed. FINDINGS: DISTRIBUTION: The maximum perfused segment at stress is in the lateral and septal wall. PERFUSION STUDY: No reversible perfusion defects. GATED STUDY: There is intact wall motion and thickening without hypokinetic or dyskinetic segments. CONCLUSION: No reversible perfusion defects to suggest ischemia. Normal ejection fraction. RISK CATEGORY: Low (<1% Annual Mortality Rate) Owen Salas MD on December 31, 2016 at 13:13 Board Certified Radiologist. This report was verified electronically.
[2016-12-31] MEDS: SODIUM CHLOR 0.9% 1000 ML INJ 1,000 ML IV SCH (13:41)
[2016-12-31] MEDS: POTASSIUM CHLORIDE 25 MEQ EFFERVESCENT TAB PO SCH (14:00)
[2016-12-31] MEDS ORDERED: POTASSIUM PHOSPHATE INJ 15 MMOL in SODIUM CHLORIDE 0.9% INJ 150 ML IV ONE (18:00)
[2016-12-31 22:21] LABS: C. DIFF EPI 027 PRESUMPTIVE NEGATIVE (NEGATIVE); C. DIFF TOXIN PCR NEGATIVE (NEGATIVE)
[2016-12-31] MEDS: DONEPEZIL HCL 5 MG TAB PO SCH (22:47)
[2017-01-01] VITALS (7 sets, daily range): BP systolic 147–187; BP diastolic 67–89; PULSE 74–91; RESP 16–21; TEMP 97.6–100.7; O2SAT 90–98
[2017-01-01] MEDS ORDERED: cloNIDine HCL 0.1 MG TAB PO PRN (09:00)
[2017-01-01] MEDS: ENOXAPARIN SODIUM 40 MG/0.4 ML SYRINGE SQ SCH ×2 (09:00→22:23)
[2017-01-01] MEDS: SODIUM CHLORIDE 0.9% FLUSH 5 ML FLUSH FLUSH SCH ×2 (09:00→22:22)
[2017-01-01] MEDS: ASPIRIN 325 MG TAB PO SCH (09:00)
--- NOTE | 2017-01-01 09:05 | HHI.PR ---
Subjective Subjective Remarks multiple complaints, frustrated about being in current room wants to go to regular room or be discharged c/o sore throat + cough, blood tinged sputum, small amount no fever no cp no sob not as weak eating okay loose stools x 1 to 3, no abd. pain no n/v at bsd now, wants a full update Dr. Young also evaluating pt. communicated STT results BP poorly controlled Review of Systems Constitutional Constitutional Remarks 12 point ROS completed, negative except as noted above Pulmonary Respiratory: Coughing Vitals/Results Vital Signs Vital Signs Date Time Temp Pulse Resp B/P Pulse Ox O2 Delivery O2 Flow Rate FiO2 01/01/17 08:36 99.4 88 18 155/78 93 01/01/17 04:00 97.6 74 16 178/87 97 01/01/17 00:00 98.0 77 21 187/89 98 12/31/16 20:21 97.8 81 18 190/81 97 12/31/16 20:00 91 12/31/16 15:44 98.6 79 18 136/75 94 180/81 162/65 12/31/16 09:00 108 CBC/BMP: 12/30/16 0540 12/30/16 0540 Lab Results Laboratory Tests Test 12/31/16 12/31/16 15:23 16:30 Erythrocyte Sedimentation Rate 38 mm/hr Phosphorus Level 1.8 MG/DL Magnesium Level 2.0 MG/DL C-Reactive Protein 14.20 MG/DL Stool C. difficile Toxin (PCR) NEGATIVE Stl C. difficile Toxin PRESUMPTIVE Epiderm 027 NEGATIVE Microbiology Microbiology 12/31/16 , Received Pending 12/31/16 Cryptosporidium Exam, Received Pending 12/31/16 Stool Pus (LENA), Received Pending 12/31/16 Giardia Antigen (LENA), Received Pending Physical Exam General General Appearance: Well Developed, Well Nourished, No Acute Distress, Comfortable Eyes Eye Exam: Pupils Equal, Pupils Reactive Ears & Nose Ears & Nose Exam: Nasal Mucosa [place] Throat Throat Exam: Oral Mucosa [place] & Moist Neck Neck Exam: Neck Supple, Trachea Midline Pulmonary Resp Exam: Breath Sounds Equal, No Distress (at rest), Decreased Bases Resp Remarks cough Gastrointestinal/Abdomen GI Exam: Soft, Non-Tender, Bowel Sounds Present Musculoskeletal MS Exam: Joints Intact, Good Strength Integumentary Skin Exam: Warm, Dry Extremeties Extremities Exam: No Edema, Pedal Pulses Palpable Neurologic Neuro Exam: Alert, Awake, Oriented, Speech Clear, Moving All Extremities, No Focal Deficits Psychiatric Psych Exam: Appropriate Responses VTE Prophylaxis VTE Prophylaxis Meds: Lovenox Assessment/Plan Problem List: (1) Generalized weakness (2) Hypertension (3) Elevated troponin (4) Headache (5) Hypoglycemia (6) Diabetes 1.5, managed as type 2 (7) Diarrhea Assessment/Plan Febrile etiology unclear? viral. DC IVF afebrile, cultures negative, off abx for now diarrhea, no cdiff, other stool cultures pending c/o sore throat and blood tinged sputum CXR today, results pending Strep swab sputum culture elevated trop. no evidence of ACS S/P STT 12/31, negative Appreciate card input likely cause of trop. fever and uncontrolled HTN BP poorly controlled continue home meds Add Clonidine PRN Start Norvasc 5 mg po daily at card's request Hypoglycemia resolved continue accuchecks weakness improving will order PT eval CM consult for DC planning poss dc today later or tomorrow D/W RN D/W Dr. Evans D/W pt and , update given, questions answered in detail This patient was seen by myself and Dr. Evans, this note is written on his behalf. Problem Qualifiers (1) Hypertension: Qualified Code: I10 - Essential hypertension (2) Headache: (3) Diarrhea: Qualified Code: R19.7 - Diarrhea, unspecified type [place] Jan 01, 2017 09:05
--- NOTE | 2017-01-01 09:06 | RADRPT ---
EXAM DATE/TIME: 01/01/2017 08:06 [facility] COMPARISON: No previous studies available for comparison. INDICATIONS : Shortness of breath. MEDICAL HISTORY : None. SURGICAL HISTORY : None. ENCOUNTER: Subsequent ACUITY: 4 - 6 days PAIN SCORE: 0/10 LOCATION: Bilateral chest FINDINGS: Bibasilar streaky density is noted consistent with atelectasis and/or mild infiltrates. Clinical cor relation is recommended. The heart is normal. The pulmonary vascular pattern is normal. CONCLUSION: 1. Bibasilar streakiness consistent with atelectasis and/or mild infiltrates. Clinical correlation is recommended. Eugene Lara MD on January 01, 2017 at 8:55 Board Certified Radiologist. This report was verified electronically.
--- NOTE | 2017-01-01 09:31 | PD.CARD.PN ---
Subjective Subjective Remarks Pt without CV complaints Objective Medications Current Medications Medications (Trade) Dose Ordered Sig/Darion Route Start Time Stop Time Status Last Admin (NS Flush) 2 ml UNSCH PRN FLUSH 12/29/16 23:45 (NS Flush) 2 ml BID FLUSH 12/30/16 09:00 12/31/16 08:50 (Tylenol) 650 mg Q4H PRN PO 12/29/16 23:45 12/30/16 04:50 (Zofran Inj) 4 mg Q6H PRN IVP 12/29/16 23:45 (Narcan Inj) 0.4 mg UNSCH PRN IV 12/29/16 23:45 (Lovenox Inj) 40 mg Q12H SQ 12/30/16 09:00 12/31/16 22:46 (Pletal) 100 mg BID PO 12/30/16 09:00 12/31/16 22:46 (Aricept) 10 mg HS PO 12/30/16 09:00 12/31/16 22:47 (Pravachol) 20 mg DAILY PO 12/30/16 09:00 12/31/16 08:51 (Diovan) 20 mg BID PO 12/30/16 09:00 12/31/16 22:46 (Pill Splitter) 1 ea UNSCH PRN OTHER 12/30/16 00:15 (D50w (Vial) Inj) 25 ml UNSCH PRN IV PUSH 12/30/16 06:15 (Glucagon Inj) 1 mg UNSCH PRN OTHER 12/30/16 06:15 (Toprol Xl) 100 mg DAILY PO 12/31/16 09:00 12/31/16 09:00 (Aspirin) 325 mg DAILY PO 12/31/16 09:15 (K-Lyte Cl Eff) 25 meq DAILY PO 12/31/16 11:15 12/31/16 14:00 (Catapres) 0.1 mg Q6H PRN PO 01/01/17 09:00 (Norvasc) 5 mg DAILY PO 01/01/17 09:00 Vital Signs / I&O Vital Signs Date Time Temp Pulse Resp B/P Pulse Ox O2 Delivery O2 Flow Rate FiO2 01/01/17 08:36 99.4 88 18 155/78 93 01/01/17 04:00 97.6 74 16 178/87 97 01/01/17 00:00 98.0 77 21 187/89 98 12/31/16 20:21 97.8 81 18 190/81 97 12/31/16 20:00 91 12/31/16 15:44 98.6 79 18 136/75 94 180/81 162/65 Physical Exam GENERAL: Well developed, well nourished. No acute distress. HEENT: Jugular venous pressure is normal. CHEST: Lungs clear to auscultation bilaterally. Unlabored respiratory effort. CARDIAC: Regular rate and rhythm without S3, S4, or murmur. ABDOMEN: Soft, nontender, no hepatosplenomegaly. Bowel sounds present. EXTREMITIES: No clubbing, cyanosis, or edema. Laboratory Laboratory Tests Test 12/31/16 12/31/16 15:23 16:30 Erythrocyte Sedimentation Rate 38 mm/hr Phosphorus Level 1.8 MG/DL Magnesium Level 2.0 MG/DL C-Reactive Protein 14.20 MG/DL Stool C. difficile Toxin (PCR) NEGATIVE Stl C. difficile Toxin PRESUMPTIVE Epiderm 027 NEGATIVE Imaging Last 72 hours Impressions Chest X-Ray 01/01/17 0000 Signed Impressions: Service Date/Time: Sunday, January 01, 2017 08:06 - CONCLUSION: 1. Bibasilar streakiness consistent with atelectasis and/or mild infiltrates. Clinical correlation is recommended. Eugene Lara MD Myocardial Perfusion Scan Nuc Med 12/31/16 0000 Signed Impressions: Service Date/Time: Saturday, December 31, 2016 11:07 - CONCLUSION: No reversible perfusion defects to suggest ischemia. Normal ejection fraction. RISK CATEGORY : Low (<1%% Annual Mortality Rate) Owen Salas MD Chest X-Ray 12/29/162055 Signed Impressions: Service Date/Time: Thursday, December 29, 2016 21:31 - CONCLUSION: No acute cardiopulmonary disease. Veronique Peter MD Assessment and Plan Assessment and Plan Indeterminant Trop- secondary to uncontrolled HTN - nuc normal HTN- - fair RBBB- stable Sepsis- per primary team, Dispo- reasonable for d/c from CV perspective Tasha Young MD Jan 01, 2017 09:30
[2017-01-01] MEDS: VALSARTAN 40 MG TAB PO SCH ×2 (10:08→22:22)
[2017-01-01] MEDS: CILOSTAZOL 100 MG TAB PO SCH ×2 (10:10→22:22)
[2017-01-01] MEDS: METOPROLOL SUCCINATE 50 MG EXTENDED RELEASE TAB PO SCH (10:11)
[2017-01-01] MEDS: PRAVASTATIN SOD 20 MG TAB PO SCH (10:11)
[2017-01-01] MEDS: amLODIPine BESYLATE 5 MG TAB PO SCH (10:12)
[2017-01-01] MEDS: POTASSIUM CHLORIDE 25 MEQ EFFERVESCENT TAB PO SCH (10:13)
--- NOTE | 2017-01-01 10:32 | HHI.FF ---
Face to Face Verification Diagnosis: (1) Generalized weakness (2) Diarrhea (3) Headache (4) Hypoglycemia (5) Hypertension (6) Elevated troponin (7) Diabetes 1.5, managed as type 2 Physical Therapy Order: Evaluate and Treat Home Health Nursing Order: Medical education Nursing assessment with vital signs I have seen patient Ata Donovan on 01/01/17. My clinical findings support the need for the requested home health care services because: Deconditioned w/ increased weakness Limited ability to care for self I certify that my clinical findings support that this patient is homebound because: Unsteady gait/balance Unsafe to leave home unassisted [place] Jan 01, 2017 10:00
[2017-01-01] MEDS: INSULIN ASPART SUPPLEMENTAL SCALE SQ SCH ×3 (11:00→22:23)
[2017-01-01] MEDS ORDERED: AMLO5 PO (17:49)
--- NOTE | 2017-01-01 17:50 | HHI.DCPOC ---
Discharge Care Plan Diagnosis: (1) Generalized weakness (2) Diarrhea (3) Headache (4) Hypoglycemia (5) Hypertension (6) Elevated troponin (7) Diabetes 1.5, managed as type 2 Your Health Problems Are: Anxiety Difficulty with ADL Goals to Promote Your Health * To prevent worsening of your condition and complications * To maintain your health at the optimal level Directions to Meet Your Goals Take your medications as prescribed Follow your dietary instruction Follow activity as directed Keep your appointments as scheduled Take your immunizations and boosters as scheduled If your symptoms worsen call your PCP, if no PCP go to Urgent Care Center or Emergency Room Smoking is Dangerous to Your Health. Avoid second hand smoke Call the 24-hour hour crisis hotline for domestic abuse at [place] Jan 01, 2017 17:50
[2017-01-01] MEDS: ACETAMINOPHEN 325 MG TAB PO PRN (22:21)
[2017-01-01] MEDS: DONEPEZIL HCL 5 MG TAB PO SCH (22:22)
[2017-01-02] VITALS: BP 145/63; PULSE 75; RESP 18; TEMP 97.7; O2SAT 94
[2017-01-02 04:00] VITALS: BP 161/79; PULSE 82; RESP 18; TEMP 98.4; O2SAT 92
[2017-01-02] MEDS: INSULIN ASPART SUPPLEMENTAL SCALE SQ SCH ×2 (05:46→11:28)
[2017-01-02 08:08] VITALS: BP 147/67; PULSE 87; RESP 18; TEMP 99; O2SAT 86
[2017-01-02 08:31] VITALS: O2SAT 97
[2017-01-02] MEDS: ASPIRIN 325 MG TAB PO SCH ×2 (09:00→09:04)
[2017-01-02] MEDS: ENOXAPARIN SODIUM 40 MG/0.4 ML SYRINGE SQ SCH (09:03)
[2017-01-02] MEDS: CILOSTAZOL 100 MG TAB PO SCH (09:04)
[2017-01-02] MEDS: amLODIPine BESYLATE 5 MG TAB PO SCH (09:04)
[2017-01-02] MEDS: VALSARTAN 40 MG TAB PO SCH (09:04)
[2017-01-02] MEDS: METOPROLOL SUCCINATE 50 MG EXTENDED RELEASE TAB PO SCH (09:05)
[2017-01-02] MEDS: POTASSIUM CHLORIDE 25 MEQ EFFERVESCENT TAB PO SCH (09:05)
[2017-01-02] MEDS: PRAVASTATIN SOD 20 MG TAB PO SCH (09:05)
[2017-01-02] MEDS: SODIUM CHLORIDE 0.9% FLUSH 5 ML FLUSH FLUSH SCH (09:08)
--- NOTE | 2017-01-02 10:22 | HHI.PR ---
Subjective Subjective Remarks Patient has been ambulating without any difficulties, gait is steady Had fever, max 100 last night Has had a cough, some becerra sputum No chest No shortness of breath One stool today, soft, not watery No abdominal pain Eating well, no nausea, no vomiting Anxious to go home ([place] Law) Review of Systems Constitutional Constitutional Remarks 12 point ROS completed, negative except as noted above ([place] Law) Pulmonary Respiratory: Coughing ([place] Law) Vitals/Results Intake & Output 01/01/17 01/01/17 01/02/17 15:00 23:00 07:00 Intake Total 480 ml 240 ml Output Total 1200 ml Balance -720 ml 240 ml Intake Oral 480 ml 240 ml Output Urine Total 1200 ml # Voids 2 # Bowel Movements 0 0 Vital Signs Vital Signs Date Time Temp Pulse Resp B/P Pulse Ox O2 Delivery O2 Flow Rate FiO2 01/02/17 08:31 97 21 01/02/17 08:08 99.0 87 18 147/67 86 01/02/17 04:00 98.4 82 18 161/79 92 01/02/17 00:00 97.7 75 18 145/63 94 01/01/17 20:13 90 01/01/17 20:06 100.7 83 18 147/67 91 01/01/17 14:40 99.3 85 20 161/72 90 ([place] Law) CBC/BMP: 12/30/16 0540 12/30/16 0540 Lab Results Laboratory Tests Test 01/01/17 15:20 Random Cortisol 18.0 MCG/DL Microbiology Microbiology 01/01/17 Acid Fast Stain, Received Pending 01/01/17 Mycobacterial Culture, Received Pending ([place] Law) Physical Exam General General Appearance: Well Developed, Well Nourished, No Acute Distress, Comfortable ([place] Law) Eyes Eye Exam: Pupils Equal, Pupils Reactive ([place] Law) Ears & Nose Ears & Nose Exam: Nasal Mucosa Aten ([place] Law) Throat Throat Exam: Oral Mucosa Aten & Moist ([place] Law) Neck Neck Exam: Neck Supple, Trachea Midline ([place] Law) Pulmonary Resp Exam: Breath Sounds Equal, No Distress (at rest), Decreased Bases Resp Remarks Scattered rhonchi bibasilar (Vale Law G. [employer]LYST) Cardiology CV Exam: Regular ([place] Law. [employer]) Gastrointestinal/Abdomen GI Exam: Soft, Non-Tender, Bowel Sounds Present ([place] Law G. [employer]) Musculoskeletal MS Exam: Joints Intact, Good Strength ([place] Law. [employer]) Integumentary Skin Exam: Warm, Dry ([place] Law. [employer]) Extremeties Extremities Exam: No Edema, Pedal Pulses Palpable ([place] Law G. [employer]LY[employer]) Neurologic Neuro Exam: Alert, Awake, Oriented, Speech Clear, Moving All Extremities, No Focal Deficits ([place] Law. [employer]) Psychiatric Psych Exam: Appropriate Responses ([place] Law [employer]) VTE Prophylaxis VTE Prophylaxis Meds: Lovenox ([place] Law. [employer]LYST) Assessment/Plan Problem List: (1) Generalized weakness (2) Hypertension (3) Elevated troponin (4) Headache (5) Hypoglycemia (6) Diabetes 1.5, managed as type 2 (7) Diarrhea Assessment/Plan Febrile etiology unclear? viral. afebrile, cultures negative, received IV antibiotics for 2 days diarrhea, no cdiff, other stool cultures pending. Has improved, non-watery c/o sore throat and blood tinged sputum-Strep swab pending sputum culture pending CXR results noted, some streakiness Did have one fever last 9 Will Star Augmentin 1 tab by mouth twice a day for 7 days elevated trop. no evidence of ACS S/P STT 2/5, negative Appreciate card input likely cause of trop. fever and uncontrolled HTN Cleared for discharge BP poorly controlled-has improved continue home meds Add Clonidine PRN Continue Norvasc 5 mg po daily-blood pressure improving Hypoglycemia resolved continue accuchecks weakness improving-has been ambulating independently PT eval Patient clinically has improved, ambulating, no longer feels weak Laboratory workup unremarkable Blood pressure better controlled Patient anxious to go home CM consult, C arranged Plan to discharge today, discussed with patient and at length, they are agreeable with continuing antibiotics Instructed them to monitor for fever, increased cough, malaise, weakness. He needs to come back to the hospital or see primary care physician if symptoms recur They both verbalized understanding Follow-up with primary care physician next week Diet heart healthy Activity as tolerated D/W RN D/W Dr. Evans D/W CM D/W pt and , update given, questions answered in detail This patient was seen by myself and Dr. Evans, this note is written on his behalf. ([place] Law) Assessment/Plan Patient seen and examined in detail as above [id number] time spent with patient Labs and medications reviewed Radiological data reviewed Notes reviewed Plan of care discussed with [employer] ANALYST Discussed with RN Discussed with patient and at bedside in detail. They want to go home. Plan to discharge him home to be followed by his primary care doctor as outpatient. Will be discharged on by mouth antibiotics. Advised to monitor temperature. And if high temperature call primary care doctor or come back to hospital. Also advise for Imodium for diarrhea. Patient and understood very well. Plan to discharge him today. Total time spent and DC planning of this patient is more than 45 minutes (Chuckie Evans MD) Problem Qualifiers (1) Hypertension: Qualified Code: I10 - Essential hypertension (2) Headache: (3) Diarrhea: Qualified Code: R19.7 - Diarrhea, unspecified type [place] Law Jan 02, 2017 10:22 Chuckie Evans MD Jan 02, 2017 13:17
--- NOTE | 2017-01-02 10:25 | HHI.DS ---
Discharge Summary Admission Date Dec 29, 2016 at 23:25 Discharge Date: Jan 02, 2017 Admitting Diagnosis sepsis , elevated troponin non-STEMI versus demand ischemia (1) Generalized weakness (2) Diarrhea (3) Headache (4) Hypoglycemia (5) Hypertension (6) Elevated troponin (7) Diabetes 1.5, managed as type 2 CBC/BMP: 12/30/16 0540 12/30/16 0540 Significant Findings Laboratory Tests Test 12/31/16 15:23 Erythrocyte Sedimentation Rate 38 mm/hr (0-20) Phosphorus Level 1.8 MG/DL (2.5-4.9) C-Reactive Protein 14.20 MG/DL (0.00-0.30) Imaging Last Impressions Chest X-Ray 01/01/17 0000 Signed Impressions: Service Date/Time: Sunday, January 01, 2017 08:06 - CONCLUSION: 1. Bibasilar streakiness consistent with atelectasis and/or mild infiltrates. Clinical correlation is recommended. Eugene Lara MD Myocardial Perfusion Scan Nuc Med 12/31/16 0000 Signed Impressions: Service Date/Time: Saturday, December 31, 2016 11:07 - CONCLUSION: No reversible perfusion defects to suggest ischemia. Normal ejection fraction. RISK CATEGORY : Low (<1%% Annual Mortality Rate) Owen Salas MD Hospital Course This is a pleasant 76 year old white male with a general complaint of weakness. Complaining of cough, subjective fever, weakness. Denies any chest pain, no shortness of breath. He was noted with the cough, but thick sputum Noted increased loose stools, was incontinent. Patient was evaluated in the emergency room, troponin 2 sets were elevated Chest x-ray did not reveal any acute findings Blood pressure was elevated Pt. was admitted for further evaluation and treatment for: (1) Generalized weakness (2) Hypertension (3) Elevated troponin (4) Headache (5) Hypoglycemia (6) Diabetes 1.5, managed as type 2 (7) Diarrhea During the course of the hospitalization, the following took place: Patient initially put on IV antibiotics for 2 days, remained afebrile, cultures negative Patient did have some improvement, was less weak He noted increased cough, chest x-ray was repeated on 01/01/2017-showed some streakiness, possibly infiltrate He was noted with increased sputum, he did spike a fever the night before Patient was started on oral antibiotics Plan of a sore throat, strep swab was order results were pending Sputum culture was also obtained, results were pending Patient reported diarrhea, however upon further evaluation it off year it was more loose stools, not watery Negative for C. difficile Number of episodes decreased to hospitalist For elevated troponin, cardiology was consulted, there was no evidence of ACS Dr. Young was consulted and recommended stress test Stress test on 12/31/2016 was negative Cardiology thought that likely cause of troponin elevation was fever and uncontrolled hypertension Patient was started on Norvasc, blood pressure improved Patient was cleared by cardiology BP poorly improved continued home meds Added Clonidine PRN Continue Norvasc 5 mg po daily-blood pressure improving Hypoglycemia resolved-likely cause of hypoglycemia was due to poor oral intake continued accuchecks Oral hypoglycemics were held Symptoms of weakness improved, physical therapy was consulted Patient was noted ambulating in hallway with minimal assistance Patient clinically improved, ambulating, no longer felt weak Laboratory workup unremarkable Blood pressure better controlled Patient anxious to go home CM consult, [facility] arranged Discharge plan discussed with patient and at length, they are agreeable with continuing antibiotics Instructed them to monitor for fever, increased cough, malaise, weakness. Instructed to come back to the hospital or see primary care physician if symptoms recur They both verbalized understanding Instructed to: Follow-up with primary care physician next week Diet heart healthy Activity as tolerated Patient discharged in stable condition Pt Condition on Discharge: Stable Discharge Disposition: Disch w/ Home Health Serv Discharge Instructions DIET: Follow Instructions for: Heart Healthy Diet Activities you can perform: Weight Bearing as Julian Follow up Referrals: Cardiology PCP Follow-up New Medications: Amlodipine (Norvasc) 5 Mg Tab 5 MG PO DAILY Blood Pressure Management #30 Ref 1 TAB Amoxicillin-Clavulanate (Amoxicillin-Clavulanate) 875-125 mg Tab 875 MG PO Q12HR Infection #13 Ref 0 TAB Continued Medications: Fbvdeylpgb-Khdaduakuydna-Uykqopli (Ttssxitnms-Oddfrsukigdnb-Tjlywrfj) 50-325-40 Mg Tab 1 TAB PO Q4H Do not exceed 6 tablets/day. PRN HEADACHE Ref 0 TAB Cilostazol (Cilostazol) 100 Mg Tab 100 MG PO BID INTERMITTENT CLAUDICATION Ref 0 TAB Donepezil (Aricept) 10 Mg Tab 10 MG PO HS Dementia #30 Ref 0 TAB Glimepiride (Glimepiride) 4 Mg Tab 4 MG PO BIDAC Blood Sugar Management #60 Ref 0 TAB Metformin (Metformin) 500 Mg Tab 1000 MG PO BIDPC With meals Blood Sugar Management #60 Ref 0 TAB Metoprolol Succinate ER 24 HR (Toprol XL) 50 Mg Tab 50 MG PO DAILY #30 Ref 0 TAB Pravastatin (Pravastatin) 20 Mg Tab 20 MG PO DAILY Cholesterol Management #30 Ref 0 TAB Repaglinide (Repaglinide) 0.5 Mg Tab 0.5 MG PO TIDAC Blood Sugar Management #90 Ref 0 TAB Valsartan (Valsartan) 40 Mg Tab 20 MG PO BID #30 Ref 0 TAB [place] Law Jan 02, 2017 10:25
[2017-01-02 10:36] VITALS: O2SAT 92
[2017-01-02] MEDS ORDERED: AMOX875T2 PO (10:46)
[2017-01-02] MEDS ORDERED: AMOXICILLIN/CLAVULANATE K 875 MG TAB PO SCH (11:00)
[2017-01-02] MEDS ORDERED: guaiFENesin/DEXTROMETHORPHAN 200 MG/20 MG/10 ML CUP PO PRN (11:00)
[2017-01-02 12:08] VITALS: BP 146/73; PULSE 77; RESP 18; TEMP 98.9; O2SAT 94
== END 2017-01-02 13:50 | disposition home health service (06) | DRG 305 ==
LOC: NEPE 20:41 → NEDA 23:25 → NEDH 12-30 07:19 → NEPHCDU 12-30 08:37 → N04A 01-01 14:40
PROVIDERS: ADMIT Specialist; ATTEND Specialist
DX: I10 Essential (primary) hypertension (principal); R50.9 Fever, unspecified; E11.649 Type 2 diabetes mellitus with hypoglycemia without coma; F03.90 Unspecified dementia, unspecified severity, without behavioral disturbance, psychotic disturbance, mood disturbance, and anxiety; I48.91 Unspecified atrial fibrillation; I45.10 Unspecified right bundle-branch block; R15.9 Full incontinence of feces; Z79.84 Long term (current) use of oral hypoglycemic drugs; I25.10 Atherosclerotic heart disease of native coronary artery without angina pectoris; D64.9 Anemia, unspecified; R19.7 Diarrhea, unspecified; R74.8 Abnormal levels of other serum enzymes
CPT/HCPCS: 71010; 71020; 78452; 80048; 80061; 80076; 81001; 82533; 82550; 82552; 82948; 83605; 83690; 83735; 84100; 84443; 84484; 85025; 85610; 85652; 85730; 86140; 87015; 87040; 87116; 87205; 87206; 87328; 87329; 87338; 87493; 87506; 93005; 93017; 94150; 96365; A9502; J1650; J1815; J1940; J2543; J2785; J3370; J7030; J7050